=== PATIENT | female | born 1995 | race Asian ===

== ENCOUNTER 2017-05-14 16:02 | Emergency (ER) | payer MEDICAID ==
[~2017-05-14] VITALS: Ht 165.1 cm; Wt 49.9 kg
[2017-05-14 16:08] VITALS: BP_SYST 114
[2017-05-14 16:36] LABS: BASOPHILS # (AUTO) 0.1 K/uL (0.0-0.2); BASOPHILS % (AUTO) 0.6 % (0.0-2.0); EOSINOPHILS # (AUTO) 0.1 K/uL (0.0-0.4); EOSINOPHILS % (AUTO) 1.2 % (0.0-4.0); HEMOGLOBIN 11.3 g/dL (12.0-16.0); LYMPHOCYTES # (AUTO) 2.4 K/uL (1.0-5.5); LYMPHOCYTES % (AUTO) 19.2 % (20.5-51.5); MEAN CORPUSCULAR HEMOGLOBIN 27 pg (27-31); MEAN CORPUSCULAR HGB CONC 32 % (32-36); MEAN CORPUSCULAR VOLUME 85 fL (79.0-98.0); MONOCYTES # (AUTO) 0.8 K/uL (0.0-1.0); MONOCYTES % (AUTO) 6.6 % (1.7-9.3); NEUTROPHILS # (AUTO) 8.9 K/uL (1.8-7.7); NEUTROPHILS % (AUTO) 72.4 % (40.0-70.0); PLATELET COUNT (AUTO) 359 K/uL (130-430); RED BLOOD CELL COUNT(AUTO) 4.13 MIL/uL (4.2-6.2); RED CELL DISTRIBUTION WIDTH 13.5 % (9.0-15.0); WHITE BLOOD COUNT (AUTO) 12.3 K/uL (4.5-11.0)
[2017-05-14 16:59] LABS: CALCIUM 8.8 mg/dL (8.4-11.0); CREATININE 0.72 mg/dL (0.55-1.30)
[2017-05-14 17:01] LABS: PROTHROMBIN TIME 10.8 SECS (9.5-12.5)
[2017-05-14 17:05] LABS: TOTAL BILIRUBIN 0.2 mg/dL (0.0-1.0)
[2017-05-14 17:06] LABS: ALBUMIN 4.3 g/dL (3.4-4.8); TOTAL PROTEIN, SERUM 7.8 g/dL (6.4-8.3)
[2017-05-14 17:12] LABS: BILIRUBIN,URINE 1+ (NEGATIVE); BLOOD, URINE 1+ (NEGATIVE); CLARITY/URINE HAZY (CLEAR); COLOR,URINE YELLOW (YELLOW); GLUCOSE,URINE NEGATIVE (NEGATIVE); KETONES,URINE TRACE (NEGATIVE); LEUKOCYTE ESTERASE ,URINE NEGATIVE (NEGATIVE); NITRITE, URINE NEGATIVE (NEGATIVE); PROTEIN URINE 2+ (NEGATIVE); UROBILINOGEN,URINE 0.2 (0.2-1.0)
[2017-05-14 17:25] LABS: BACTERIA,URINE MODERATE /HPF (None Seen)
[2017-05-14 17:26] LABS: CALCIUM OXALATE CRYSTALS,UR 1+ /HPF (None Seen); MUCUS,URINE 3+ /LPF (None Seen)
[2017-05-14 19:13] VITALS: BP_SYST 117
== END 2017-05-14 19:13 | disposition home or self-care (01) ==
LOC: SED 16:02
DX: R10.9 Unspecified abdominal pain (principal); R42 Dizziness and giddiness
CPT/HCPCS: 36415; 80053; 81000-TC; 81025; 82150-TC; 83690-TC; 84703; 85025; 85610-TC; 85730-TC; 87086; 99285